=== PATIENT | male | born 1985 | race Caucasian/White ===

== ENCOUNTER → 2016-06-18 | Outpatient (CLI) | payer OTHER ==
[2016-06-18 17:43] LABS: ALBUMIN 3.6 GM/DL (3.2-5.2); ALBUMIN/GLOBULIN RATIO 1.13 (1.00-1.93); ALKALINE PHOSPHATASE 70 U/L (45-117); ALT/SGPT 35 U/L (12-78); ANION GAP 10 MEQ/L (8-16); AST/SGOT 16 U/L (15-37); BILIRUBIN,TOTAL 0.6 MG/DL (0.2-1.0); BLOOD UREA NITROGEN 10 MG/DL (7-18); CALCIUM LEVEL 8.7 MG/DL (8.5-10.1); CARBON DIOXIDE LEVEL 27 MEQ/L (21-32); CHLORIDE LEVEL 104 MEQ/L (98-107); CHOLESTEROL LEVEL 144 MG/DL (<200); CREATININE FOR GFR 0.92 MG/DL (0.70-1.30); GLOMERULAR FILTRATION RATE > 60.0 (>60); GLUCOSE, FASTING 254 MG/DL (70-105); POTASSIUM SERUM 4.1 MEQ/L (3.5-5.1); SODIUM LEVEL 141 MEQ/L (136-145); TOTAL PROTEIN 6.8 GM/DL (6.4-8.2); TRIGLYCERIDES LEVEL 169 MG/DL (<150)
== END ==
LOC: M WUC 13:24
PROVIDERS: ATTEND Physician Assistant
DX: E11.65 Type 2 diabetes mellitus with hyperglycemia (principal); E78.4 Other hyperlipidemia

== ENCOUNTER → 2016-08-02 | Day surgery (SDC) | payer OTHER ==
[~2016-08-02] VITALS: Ht 172.7 cm; Wt 142.9 kg
[~2016-08-02] MED LIST: CIPRODEX OTIC SUSP 7.5ML As Ordered ONE; GLIP5TAB8 PO; IBUP80TA PO; INSUDET SC; LIDOCAINE 2% INJ 100 MG/5 ML SDV (FOR ANES.) As Ordered ONE; LR 1,000 ML IV SCH; METF1000 PO; MIDAZOLAM INJ 2 MG/2 ML VIAL (J2250) As Ordered ONE; ONDANSETRON 4MG/2ML VIAL (J2405) As Ordered ONE; OXYMETAZOLINE NASAL SPRAY (AFRIN) As Ordered ONE; PERCOCET 5MG/325MG TAB PO PRN; PROPOFOL 200 MG/20 ML VIAL As Ordered ONE; TOUJ1.2I SC; fentaNYL 100 MCG/2 ML INJECTION (J3010) As Ordered ONE
[2016-08-02 16:45] VITALS: BP 110/71
--- NOTE | 2016-08-09 21:15 | RO ---
DATE OF PROCEDURE: 08/02/2016 PREOPERATIVE DIAGNOSIS: Chronic serous otitis media. POSTOPERATIVE DIAGNOSIS: Chronic serous otitis media. PROCEDURE: Bilateral tympanostomy using a Triune tube. SURGEON: Everette Solis MD CHOREOGRAPHY DIRECTOR: ANESTHESIA: General. CLINICAL PREAMBLE: This 31-year-old man presented to the office with a history of eustachian tube and chronic serous otitis media. He would do well until the tubes were extruded. Chronic serous otitis media was noted with significant retraction of the left tympanic membrane. Management options, including surgery listed above have been discussed. The patient understood and consented to the procedure. DESCRIPTION OF PROCEDURE: Patient was identified in preoperative holding and had the left ear marked. He was brought to the operating room in stable condition. In the supine position on the operating room table, the patient received general anesthesia followed by orotracheal intubation without incident. The patient was prepped and draped in the usual fashion for the procedure. The patient's head was turned to the right side to expose the left ear. Ear speculum was inserted and cerumen was debrided. The right tympanic membrane was visualized and found to be thickened and retracted onto the promontory of the left middle ear cavity. Myringotomy incision was made over the anterior inferior quadrant of the tympanic membrane. The thick mucosa secretion was suctioned clear out of the left middle ear. The Triune tube was successfully inserted. Ciprodex drops were instilled and a cotton ball was used to occlude the ear canal. At the end of the procedure, sponge and instrument counts were correct. No complication was encountered. Estimated blood loss was 1 mL. General anesthesia was reversed, and patient was extubated and brought to the recovery room in stable condition.
== END | disposition home or self-care (01) ==
LOC: M SDC 12:14
PROVIDERS: ATTEND Otolaryngology
DX: H65.22 Chronic serous otitis media, left ear (principal); E11.9 Type 2 diabetes mellitus without complications; H92.10 Otorrhea, unspecified ear; H90.0 Conductive hearing loss, bilateral; H60.90 Unspecified otitis externa, unspecified ear; H69.90 Unspecified Eustachian tube disorder, unspecified ear; H70.10 Chronic mastoiditis, unspecified ear; H60.339 Swimmer's ear, unspecified ear; G43.909 Migraine, unspecified, not intractable, without status migrainosus; Z79.899 Other long term (current) drug therapy
CPT/HCPCS: 69436; J2250; J2405; J3010

== ENCOUNTER → 2016-08-06 | Outpatient (CLI) | payer OTHER ==
[~2016-08-06] MED LIST changes: -CIPRODEX OTIC SUSP 7.5ML As Ordered ONE; -LIDOCAINE 2% INJ 100 MG/5 ML SDV (FOR ANES.) As Ordered ONE; -LR 1,000 ML IV SCH; -MIDAZOLAM INJ 2 MG/2 ML VIAL (J2250) As Ordered ONE; -ONDANSETRON 4MG/2ML VIAL (J2405) As Ordered ONE; -OXYMETAZOLINE NASAL SPRAY (AFRIN) As Ordered ONE; -PERCOCET 5MG/325MG TAB PO PRN; -PROPOFOL 200 MG/20 ML VIAL As Ordered ONE; -fentaNYL 100 MCG/2 ML INJECTION (J3010) As Ordered ONE
--- NOTE | 2016-08-06 14:30 | REP ---
Clinical: Proteinuria. Technique: Real time valiente scale and color evaluation of the kidneys using curved array transducer. Findings: The left kidney measures 15.1 x 4.5 x 5.5 cm and demonstrates duplicated collecting system with moderate severe hydroureteronephrosis of the upper pole moiety and mild to moderate hydroureteronephrosis of the lower pole moiety. No obvious left renal cyst, mass, or nephrolithiasis. Right kidney is normal in contour, size, echogenicity without duplication, nephrolithiasis hydroureternephrosis, cystic or mass lesion. Right kidney measures 14.8 x 5.1 x 5.6 cm. Bladder is grossly unremarkable. 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 Consider pre and postcontrast CT or functional imaging if necessary. Signed by Jose Roberto Juarez MD 08/06/2016 02:22 P
== END ==
LOC: M RAD 13:11
PROVIDERS: ATTEND Internal Medicine Nephrology
DX: N18.3 Chronic kidney disease, stage 3 (moderate) (principal); N13.39 Other hydronephrosis

== ENCOUNTER → 2016-09-10 | Outpatient (CLI) | payer OTHER ==
--- NOTE | 2016-09-10 14:33 | REP ---
RENAL NUCLEAR SCAN WITH FLOW AND FUNCTION: Following the intravenous administration of 8.8 mCi of technetium 99m MAG-3, immediate flow images are obtained in the posterior projection showing fairly symmetrical perfusion of the kidneys. Delayed renal function images are performed in the posterior projection every minute for a period of 30 minutes. There is moderate left hydronephrosis. No hydronephrosis is seen on the right. There is bilateral cortical uptake and excretion. Split function is 48% on the left and 52% on the right. [id number] is 2 minutes bilaterally. T1/2 on the left is 11.4 minutes which is minimally elevated. T1/2 on the right is 5.2 minutes. Renal function curve is mildly shallow in its downward slope on the left side. Renal function curve for the right kidney is normal. There is mild postvoid residual in the urinary bladder after voiding. 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 Mildly diminished left renal function. Signed by Bola Newton MD 09/10/2016 08:10 P
--- NOTE | 2016-09-11 04:01 | REP ---
Clinical: Hydronephrosis. Comparison: Renal ultrasound dated 08/06/2016. Findings: Noncontrast CT of the abdomen and pelvis demonstrates moderate left hydronephrosis which may be secondary to ureteropelvic junction obstruction as the visualized ureter appears normal throughout its course to the bladder. Recent ultrasound suggested a duplicated collecting system to the left kidney which cannot be confirmed by noncontrast CT. The right kidney is without evidence for hydronephrosis and demonstrates a normal renal pelvis and ureter throughout its course to the bladder. The kidneys are otherwise normal in contour and echogenicity without nephroureterolithiasis. The bladder itself is unremarkable. Liver, spleen, pancreas, gallbladder, and bilateral adrenal glands are normal. The enteric system is without obstruction or acute inflammatory process. Pelvis demonstrates normal bladder and age appropriate prostate/seminal vesicles. No pelvic fluid or ascites. No free air. 1 cm fat containing periumbilical hernia noted. Evidence for prior appendectomy. No adenopathy. Musculoskeletal structures are intact. Lung bases are clear. Impression: 1. Moderate left hydronephrosis may be secondary to UPJ obstruction. Recent ultrasound suggested a duplicated collecting system which cannot be confirmed by noncontrast CT and if necessary pre post contrast CT of the abdomen and pelvis may be warranted. The urinary tract system is otherwise unremarkable. 2. No further acute intra-abdominal or pelvic pathology appreciated. Signed by Jose Roberto Juarez MD 09/11/2016 03:53 A
== END ==
LOC: M RAD 12:05
PROVIDERS: ATTEND Internal Medicine Nephrology
DX: N13.30 Unspecified hydronephrosis (principal)

== ENCOUNTER → 2016-10-01 | Outpatient (CLI) | payer OTHER ==
[2016-10-01 12:58] LABS: ALBUMIN 3.6 GM/DL (3.2-5.2); ALBUMIN/GLOBULIN RATIO 1.09 (1.00-1.93); ALKALINE PHOSPHATASE 80 U/L (45-117); ALT/SGPT 29 U/L (12-78); ANION GAP 7 MEQ/L (8-16); AST/SGOT 10 U/L (15-37); BILIRUBIN,TOTAL 0.6 MG/DL (0.2-1.0); BLOOD UREA NITROGEN 20 MG/DL (7-18); CARBON DIOXIDE LEVEL 28 MEQ/L (21-32); CHLORIDE LEVEL 103 MEQ/L (98-107); CREATININE FOR GFR 0.96 MG/DL (0.70-1.30); GLOMERULAR FILTRATION RATE > 60.0 (>60); GLUCOSE, FASTING 362 MG/DL (70-105); POTASSIUM SERUM 4.2 MEQ/L (3.5-5.1); SODIUM LEVEL 138 MEQ/L (136-145); TOTAL PROTEIN 6.9 GM/DL (6.4-8.2)
== END ==
LOC: M WUC 09:54
PROVIDERS: ATTEND Physician Assistant
DX: E11.65 Type 2 diabetes mellitus with hyperglycemia (principal)

== ENCOUNTER → 2016-12-21 | Outpatient (CLI) | payer OTHER ==
[~2016-12-21] MED LIST changes: -METF1000 PO; +METF10004 PO
[2016-12-21 13:43] LABS: ALBUMIN 3.7 GM/DL (3.2-5.2); ALBUMIN/GLOBULIN RATIO 1.19 (1.00-1.93); ALKALINE PHOSPHATASE 64 U/L (45-117); ALT/SGPT 31 U/L (12-78); ANION GAP 7 MEQ/L (8-16); AST/SGOT 10 U/L (15-37); BILIRUBIN,TOTAL 0.9 MG/DL (0.2-1.0); BLOOD UREA NITROGEN 14 MG/DL (7-18); CALCIUM LEVEL 9.8 MG/DL (8.5-10.1); CARBON DIOXIDE LEVEL 28 MEQ/L (21-32); CHLORIDE LEVEL 104 MEQ/L (98-107); CREATININE FOR GFR 0.98 MG/DL (0.70-1.30); GLOMERULAR FILTRATION RATE > 60.0 (>60); GLUCOSE, FASTING 300 MG/DL (70-105); POTASSIUM SERUM 4.8 MEQ/L (3.5-5.1); SODIUM LEVEL 139 MEQ/L (136-145); TOTAL PROTEIN 6.8 GM/DL (6.4-8.2)
== END ==
LOC: M WUC 10:18
PROVIDERS: ATTEND Physician Assistant
DX: E11.65 Type 2 diabetes mellitus with hyperglycemia (principal)

== ENCOUNTER → 2017-01-10 | Outpatient (REF) | payer OTHER | LOC: M LAB REF 12:47 | PROVIDERS: ATTEND Physician Assistant Medical | DX: Z96.22 Myringotomy tube(s) status (principal) ==

== ENCOUNTER → 2017-01-24 | Outpatient (REF) | payer OTHER | LOC: M LAB REF 12:35 | PROVIDERS: ATTEND Physician Assistant Medical | DX: Z96.22 Myringotomy tube(s) status (principal) ==